=== PATIENT | female | born 1945 | race Caucasian/White ===

== ENCOUNTER → 2022-03-25 18:30 | Outpatient (CLI) | payer SELFPAY ==
--- NOTE | 2022-03-25 18:41 | DI.RAD.S_ITS ---
PROCEDURE: XR FINGER RT MIN 2V INDICATIONS: slammed finger in car door w/ Lac repair TECHNIQUE: AP hand, 2 views of the index finger(s) acquired. COMPARISON: None. FINDINGS: Bones: Sideplate and screw fixation of the distal radius is seen. There are degenerative changes of the interphalangeal joints and 1st carpometacarpal joint. Subchondral erosions of the ring finger PIP joint. Soft tissues: No suspicious soft tissue calcifications. No radiopaque foreign bodies. IMPRESSION: 1. No acute traumatic abnormality. 2. Degenerative changes consistent with osteoarthritis with erosions of the ring finger PIP joint. Dictated by: César Spivey M.D. on 03/25/2022 at 19:18 Approved by: César Spivey M.D. on 03/25/2022 at 19:20
== END ==
PROVIDERS: Referring Provider Student in an Organized Health Care Education/Training Program; Visit Provider Student in an Organized Health Care Education/Training Program
DX: S61.219A Laceration without foreign body of unspecified finger without damage to nail, initial encounter (principal); M79.644 Pain in right finger(s); X58.XXXA Exposure to other specified factors, initial encounter
CPT/HCPCS: 73140